=== PATIENT | male | born 2000 | race Caucasian/White ===

== ENCOUNTER 2018-09-05 01:16 | Emergency (ER) | payer OTHER ==
[2018-09-05] MEDS: ONDANSETRON (ODT) 4 MG TAB ODT (04:19)
[2018-09-05] MEDS: LIDOCAINE 1% (MDV) 20 ML INJ SC (04:19)
[2018-09-05] MEDS: DIPHTH/TET/ACEL PERTUSS (ADULT) 0.5 ML VIAL IM* (04:19)
[2018-09-05] MEDS: morphine 4 MG/ML VIAL IM (04:19)
== END 2018-09-05 07:06 | disposition home or self-care (01) ==
LOC: FTE 01:16
DX: S61.215A Laceration without foreign body of left ring finger without damage to nail, initial encounter (principal); S61.214A Laceration without foreign body of right ring finger without damage to nail, initial encounter; S93.401A Sprain of unspecified ligament of right ankle, initial encounter; X58.XXXA Exposure to other specified factors, initial encounter; Y92.89 Other specified places as the place of occurrence of the external cause; Z23 Encounter for immunization
CPT/HCPCS: 12002; 73130-50; 73590; 73610-RT; 73630; 90471; 90715; 96372; 99284-25